=== PATIENT | female | born 1975 | race African-American/Black ===

== ENCOUNTER 2022-11-11 00:21 | Emergency (ER) | payer OTHER ==
[2022-11-11 00:34] VITALS: BP 137/88; PULSE 84; RESP 20; TEMP 98.2; BMI 27.1
[2022-11-11 01:30] LABS: EOS % 4.4 % (0-4.5); HEMATOCRIT 40.4 % (32.4-45.2); HEMOGLOBIN 13.4 GM/dL (10.7-15.3); LYMPH % 41.9 % (8-40); MCH 27.5 pg (25.7-33.7); MCHC 33.2 g/dl (32.0-36.0); MEAN CELL VOLUME 82.7 fl (80-96); MEAN PLT VOLUME 8.3 fl (7.5-11.1); MONO % 10.3 % (3.8-10.2); NEUT % 42.4 % (42.8-82.8); PLATELET COUNT 262 10^3/uL (134-434); RBC 4.89 M/mm3 (3.60-5.2); RDW 14.4 % (11.6-15.6); WHITE BLOOD COUNT 3.7 K/mm3 (4.0-10.0)
[2022-11-11 01:41] LABS: INR 1.06 (0.83-1.09); PROTHROMBIN TIME (PATIENT) 12.3 SEC (9.7-13.0)
[2022-11-11 01:44] LABS: ACTIVATED PTT 26.5 SECONDS (25.2-36.5)
[2022-11-11 01:50] LABS: CALCIUM 9.1 mg/dL (8.5-10.1)
[2022-11-11 01:55] LABS: TOT PROT 7.3 g/dl (6.4-8.2)
== END 2022-11-11 05:29 | disposition home or self-care (01) ==
LOC: JER 00:21
DX: R10.13 Epigastric pain (principal); R07.89 Other chest pain
CPT/HCPCS: 36415; 71046-TC-FY; 80053; 83605; 83735; 84484; 84703; 85025; 85610; 85730; 93005; 93010; 99285-25; C9803-CS; U0003; U0005